=== PATIENT | male | born 1950 | race Caucasian/White ===

== ENCOUNTER 2018-10-27 21:42 | Inpatient (IN) | payer MEDICARE, MEDICAID ==
[~2018-10-27] VITALS: Ht 167.6 cm; Wt 61.6 kg
[~2018-10-27 21:42] MED LIST: ACET325T14 PO; LEVE100020; THIA100T67 PO; [UNRECOGNIZED DRUG - REMARK]
--- NOTE | 2018-10-27 21:51 | NUR ---
PT BIB [facility] FOR ETOH INTOXICATION AND ABD PAIN. VSS. PT AMBULATES WITH AN UNSTEADY GAIT. PT HAS HX OF ETOH ABUSE AND CIRRHOSIS. PT IN NAD. CALL LIGHT IN REACH
[2018-10-27 22:05] LABS: BASOPHILS # (AUTO) 0.02 x10^3/uL (0-0.1); BASOPHILS % (AUTO) 0 % (0-1); EOSINOPHILS # (AUTO) 0.23 x10^3/uL (0-0.4); EOSINOPHILS % (AUTO) 3 % (1-7); LYMPHOCYTES # (AUTO) 1.38 x10^3/uL (1-3.4); LYMPHOCYTES % (AUTO) 20 % (22-44); MD NO; MEAN CORPUSCULAR HEMOGLOBIN 36.2 pg (27.5-34.5); MEAN CORPUSCULAR VOLUME 106.7 fL (81-97); MEAN PLATELET VOLUME 8.1 fL (7.4-10.4); MONOCYTES # (AUTO) 0.85 x10^3/uL (0.2-0.8); MONOCYTES % (AUTO) 12 % (2-9); NEUTROPHILS # (AUTO) 4.58 x10^3/uL (1.8-6.8); NEUTROPHILS % (AUTO) 65 % (42-75); PLATELET COUNT 228 x10^3/uL (130-400); RED BLOOD COUNT 3.16 x10^6/uL (4.38-5.82); RED CELL DISTRIBUTION WIDTH 16.6 % (9.4-14.8)
[2018-10-27 22:17] LABS: ALANINE AMINOTRANSFERASE 56 U/L (12-78); ALBUMIN 3.5 g/dL (3.4-5.0); ANION GAP 18 mmol/L (5-15); CALCIUM 8.9 mg/dL (8.5-10.1); CHLORIDE 85 mmol/L (98-107); CREATININE 0.74 mg/dL (0.7-1.3)
[2018-10-27 22:19] LABS: ALKALINE PHOSPHATASE 111 U/L (45-117); BILIRUBIN,TOTAL 1.2 mg/dL (0.2-1.0); TOTAL PROTEIN 8.1 g/dL (6.4-8.2)
--- NOTE | 2018-10-27 23:03 | NUR ---
PT RESTING IN NAD. VSS. MD AT BEDSIDE
[2018-10-27] MEDS ORDERED: SODIUM CHLORIDE 0.9% 1,000 ML IV ONE (23:42)
--- NOTE | 2018-10-27 23:58 | NUR ---
PIV PLACED AND FLUIDS RUNNING. ADMITTING MD AT BEDSIDE
[2018-10-28] MEDS ORDERED: POLYETHYLENE GLYCOL 17 GM PACKET PO PRN
[2018-10-28] MEDS ORDERED: ONDANSETRON ODT 4 MG PO PRN
[2018-10-28] MEDS ORDERED: BISACODYL 10 MG SUPP PR PRN
[2018-10-28] MEDS ORDERED: POTASSIUM CHLORIDE 20 MEQ TAB.ER.PRT PO ONE (00:30)
[2018-10-28 01:07] VITALS: BP 108/62
[2018-10-28 01:32] LABS: MEAN CORPUSCULAR HEMOGLOBIN 35.6 pg (27.5-34.5); MEAN CORPUSCULAR HGB CONC 33.1 g/dL (33.2-36.2); MEAN CORPUSCULAR VOLUME 107.5 fL (81-97); MEAN PLATELET VOLUME 9.2 fL (7.4-10.4); PLATELET COUNT 201 x10^3/uL (130-400); RED BLOOD COUNT 3.33 x10^6/uL (4.38-5.82)
[2018-10-28 01:44] LABS: BASOPHILS # (AUTO) 0.18 x10^3/uL (0-0.1); BASOPHILS % (AUTO) 2 % (0-1); EOSINOPHILS # (AUTO) 0.24 x10^3/uL (0-0.4); EOSINOPHILS % (AUTO) 3 % (1-7); LYMPHOCYTES % (AUTO) 18 % (22-44); MD SCAN; MONOCYTES # (AUTO) 1.35 x10^3/uL (0.2-0.8); MONOCYTES % (AUTO) 14 % (2-9); NEUTROPHILS # (AUTO) 6.13 x10^3/uL (1.8-6.8); NEUTROPHILS % (AUTO) 64 % (42-75)
[2018-10-28] MEDS: SODIUM CHLORIDE 0.9% 1,000 ML IV SCH ×2 (02:04→15:29)
[2018-10-28] MEDS ORDERED: FLU VAC QS18-19(4YR UP)CEL/PF 0.5ML IM-VACC ONE ×2 (03:30→05:00)
[2018-10-28 07:11] LABS: ANION GAP 9 mmol/L (5-15); CHLORIDE 93 mmol/L (98-107)
[2018-10-28 07:15] LABS: ALANINE AMINOTRANSFERASE 46 U/L (12-78); ALKALINE PHOSPHATASE 108 U/L (45-117); CREATININE 0.57 mg/dL (0.7-1.3)
[2018-10-28 07:37] VITALS: BP 109/65
[2018-10-28] MEDS: SENNA/DOCUSATE TABLET PO SCH (09:00)
[2018-10-28] MEDS ORDERED: CHLORDIAZEPOXIDE 10 MG CAPSULE PO PRN (13:00)
[2018-10-28 14:45] VITALS: BP 102/51
[2018-10-28 20:48] VITALS: BP 117/54
[2018-10-29 02:48] VITALS: BP 100/58
[2018-10-29] MEDS: SODIUM CHLORIDE 0.9% 1,000 ML IV SCH (03:45)
[2018-10-29 05:44] LABS: ANION GAP 6 mmol/L (5-15); CALCIUM 8.2 mg/dL (8.5-10.1); CHLORIDE 101 mmol/L (98-107); CREATININE 0.58 mg/dL (0.7-1.3)
[2018-10-29 05:46] LABS: HEMOGRAM NOTE RECHECKED; MEAN CORPUSCULAR HEMOGLOBIN 35.6 pg (27.5-34.5); MEAN CORPUSCULAR HGB CONC 33.2 g/dL (33.2-36.2); MEAN CORPUSCULAR VOLUME 107.1 fL (81-97); MEAN PLATELET VOLUME 8.8 fL (7.4-10.4); PLATELET COUNT 152 x10^3/uL (130-400); RED CELL DISTRIBUTION WIDTH 17.2 % (9.4-14.8)
[2018-10-29 06:31] LABS: BASOPHILS # (AUTO) 0.01 x10^3/uL (0-0.1); BASOPHILS % (AUTO) 0 % (0-1); EOSINOPHILS # (AUTO) 0.33 x10^3/uL (0-0.4); EOSINOPHILS % (AUTO) 5 % (1-7); LYMPHOCYTES # (AUTO) 1.08 x10^3/uL (1-3.4); LYMPHOCYTES % (AUTO) 16 % (22-44); MD SCAN; MONOCYTES # (AUTO) 1.12 x10^3/uL (0.2-0.8); MONOCYTES % (AUTO) 17 % (2-9); NEUTROPHILS # (AUTO) 4.04 x10^3/uL (1.8-6.8); NEUTROPHILS % (AUTO) 61 % (42-75)
[2018-10-29 07:16] VITALS: BP 102/62
[2018-10-29] MEDS: FOLIC ACID 1 MG TABLET PO SCH (07:50)
[2018-10-29] MEDS: MULTIVITAMIN 1 TABLET PO SCH (07:50)
[2018-10-29] MEDS: SENNA/DOCUSATE TABLET PO SCH (07:50)
[2018-10-29] MEDS: THIAMINE 100MG TABLET PO SCH (07:53)
[2018-10-29 12:54] VITALS: BP 129/65
[2018-10-29 20:57] VITALS: BP 121/75
[2018-10-30 02:20] VITALS: BP 118/68
[2018-10-30 06:09] LABS: BASOPHILS # (AUTO) 0.02 x10^3/uL (0-0.1); BASOPHILS % (AUTO) 0 % (0-1); EOSINOPHILS % (AUTO) 7 % (1-7); LYMPHOCYTES # (AUTO) 1.28 x10^3/uL (1-3.4); LYMPHOCYTES % (AUTO) 22 % (22-44); MD NO; MEAN CORPUSCULAR HEMOGLOBIN 36.2 pg (27.5-34.5); MEAN CORPUSCULAR HGB CONC 33.8 g/dL (33.2-36.2); MEAN CORPUSCULAR VOLUME 107.2 fL (81-97); MEAN PLATELET VOLUME 8.7 fL (7.4-10.4); MONOCYTES # (AUTO) 0.74 x10^3/uL (0.2-0.8); MONOCYTES % (AUTO) 13 % (2-9); NEUTROPHILS # (AUTO) 3.49 x10^3/uL (1.8-6.8); NEUTROPHILS % (AUTO) 59 % (42-75); PLATELET COUNT 155 x10^3/uL (130-400); RED BLOOD COUNT 2.89 x10^6/uL (4.38-5.82)
[2018-10-30 06:32] LABS: CHLORIDE 100 mmol/L (98-107)
[2018-10-30 06:36] LABS: ANION GAP 8 mmol/L (5-15); CALCIUM 8.6 mg/dL (8.5-10.1); CREATININE 0.46 mg/dL (0.7-1.3)
[2018-10-30 07:45] VITALS: BP 109/67
[2018-10-30] MEDS: MULTIVITAMIN 1 TABLET PO SCH (08:02)
[2018-10-30] MEDS: FOLIC ACID 1 MG TABLET PO SCH (08:02)
[2018-10-30] MEDS: SENNA/DOCUSATE TABLET PO SCH (08:03)
[2018-10-30] MEDS: THIAMINE 100MG TABLET PO SCH (08:03)
[2018-10-30 13:27] VITALS: BP 119/64
[2018-10-30] MEDS ORDERED: FOLI-17 PO (17:22)
[2018-10-30] MEDS ORDERED: THIA100T67 PO (17:22)
[2018-10-30] MEDS ORDERED: MULT1TAB60 PO (17:22)
[2018-10-30] MEDS ORDERED: MAGN400T26 PO (17:22)
[2018-10-30 19:44] VITALS: BP 131/76
[2018-10-31 02:29] VITALS: BP 126/66
[2018-10-31 07:23] VITALS: BP 134/68
[2018-10-31] MEDS: MULTIVITAMIN 1 TABLET PO SCH (07:53)
[2018-10-31] MEDS: FOLIC ACID 1 MG TABLET PO SCH (07:53)
[2018-10-31] MEDS: SENNA/DOCUSATE TABLET PO SCH (07:54)
[2018-10-31] MEDS: THIAMINE 100MG TABLET PO SCH (07:58)
== END 2018-10-31 11:50 | disposition home or self-care (01) | DRG 641 ==
LOC: ED 23:43 → 4NOR 23:57 → DCLOUNGE 10-31 11:32
PROVIDERS: ADMIT Internal Medicine; ATTEND Internal Medicine
DX: E87.1 Hypo-osmolality and hyponatremia (principal); F10.220 Alcohol dependence with intoxication, uncomplicated; K70.30 Alcoholic cirrhosis of liver without ascites; R00.0 Tachycardia, unspecified; E87.5 Hyperkalemia; E86.0 Dehydration; E87.6 Hypokalemia; F17.210 Nicotine dependence, cigarettes, uncomplicated; D64.9 Anemia, unspecified; Z59.0 Homelessness; Z23 Encounter for immunization
CPT/HCPCS: 36415; 80048; 80053; 80307; 83690; 83930; 84295; 85025; 90656; 93005; 99285; G0378; J7030

== ENCOUNTER 2018-11-07 12:44 | Emergency (ER) | payer MEDICARE, MEDICAID ==
[~2018-11-07] VITALS: Ht 162.6 cm; Wt 70.0 kg
[~2018-11-07 12:44] MED LIST changes: +FOLI-17 PO; +MAGN400T26 PO; +MULT1TAB60 PO
[2018-11-07 13:26] VITALS: BP 106/68
== END 2018-11-07 13:53 | disposition home or self-care (01) ==
LOC: ED 13:47
DX: F10.220 Alcohol dependence with intoxication, uncomplicated (principal)
CPT/HCPCS: 99283

== ENCOUNTER 2018-11-24 16:53 | Emergency (ER) | payer MEDICARE, MEDICAID ==
[~2018-11-24] VITALS: Ht 165.1 cm; Wt 80.0 kg
[2018-11-24 17:01] VITALS: BP 129/77
== END 2018-11-24 17:32 | disposition home or self-care (01) ==
LOC: ED 17:25
DX: I87.2 Venous insufficiency (chronic) (peripheral) (principal); E88.09 Other disorders of plasma-protein metabolism, not elsewhere classified; F17.200 Nicotine dependence, unspecified, uncomplicated
CPT/HCPCS: 99283

== ENCOUNTER 2018-11-25 00:31 | Emergency (ER) | payer MEDICARE, MEDICAID ==
[~2018-11-25] VITALS: Ht 167.6 cm; Wt 75.0 kg
--- NOTE | 2018-11-25 00:43 | NUR ---
PT BIB EMS AFTER PT WAS FOUND ON THE SIDE OF THE STREET. PT SMELLS OF ETOH. NO ACUTE DISTRESS NOTED. VS STABLE. PT SEEN BY DR HICKMAN. CALL LIGHT IN PLACE. WILL CONTINUE TO MONITOR.
--- NOTE | 2018-11-25 01:22 | NUR ---
PT RESTING ON GURNEY, NADN, RESPIRATIONS EVEN AND UNLABORED, SIDERAILS UP X2, CALL LIGHT WITHIN REACH
--- NOTE | 2018-11-25 03:27 | NUR ---
PT RESTING WITH EYES CLOSED, REPOSITIONED SELF ON GURNEY, EQUAL CHEST RISE/ FALL OBSERVED, CALL LIGHT WITHIN REACH.
[2018-11-25 04:18] VITALS: BP 109/46
[2018-11-25] MEDS ORDERED: BACITRACIN ZINC OINT 500U/GM, 0.9 GM ONE (04:23)
--- NOTE | 2018-11-25 04:37 | NUR ---
PT AWAKE AND ALERT ANSWERS QUESTIONS APPROPRIATELY, ABLE TO AMBULATE WITHOUT DIFFICULTY
== END 2018-11-25 04:40 | disposition home or self-care (01) ==
LOC: ED 01:10
DX: F10.120 Alcohol abuse with intoxication, uncomplicated (principal); Z72.9 Problem related to lifestyle, unspecified; F17.200 Nicotine dependence, unspecified, uncomplicated
CPT/HCPCS: 36415; 80307; 99283

== ENCOUNTER 2018-12-08 10:38 | Emergency (ER) | payer MEDICARE, MEDICAID ==
[~2018-12-08] VITALS: Ht 167.6 cm; Wt 67.8 kg
[2018-12-08 10:41] VITALS: BP 116/71
--- NOTE | 2018-12-08 11:13 | NUR ---
PT TO ED FOR "LEG PAIN AND CAN'T WALK." PT AMB WIHTOUT ASSISTANCE WITH STEADY GAIT. PT RELUCTANT TO ANSWER QUESTIONS AND STATES "I'M CRIPPLED AND I DON'T FEEL GOOD." PT REFUSES TO ELABORATE OR STATE IF HE IS IN PAIN OR STATE ANY MEDICAL HISTORY. PT STATES HE DRANK TEN BEERS TODAY. CONNECTED TO PULSE OX. VSS. CALL LIGHT WITHIN REACH. NO NEEDS AT THIS TIME. AWAITIN GMD ASSESSMENT.
--- NOTE | 2018-12-08 12:00 | NUR ---
ORDERS RECEIVED. LAB AT BEDSIDE. NO NEEDS AT THIS TIME. CALL LIGHT WITHIN REACH.
[2018-12-08 12:11] LABS: BASOPHILS # (AUTO) 0.04 x10^3/uL (0-0.1); BASOPHILS % (AUTO) 1 % (0-1); EOSINOPHILS # (AUTO) 0.11 x10^3/uL (0-0.4); EOSINOPHILS % (AUTO) 2 % (1-7); LYMPHOCYTES # (AUTO) 1.36 x10^3/uL (1-3.4); LYMPHOCYTES % (AUTO) 20 % (22-44); MD NO; MEAN CORPUSCULAR HEMOGLOBIN 34.5 pg (27.5-34.5); MEAN CORPUSCULAR HGB CONC 33.1 g/dL (33.2-36.2); MEAN CORPUSCULAR VOLUME 104.1 fL (81-97); MEAN PLATELET VOLUME 7.3 fL (7.4-10.4); MONOCYTES # (AUTO) 0.82 x10^3/uL (0.2-0.8); MONOCYTES % (AUTO) 12 % (2-9); NEUTROPHILS # (AUTO) 4.43 x10^3/uL (1.8-6.8); NEUTROPHILS % (AUTO) 66 % (42-75); PLATELET COUNT 292 x10^3/uL (130-400); RED BLOOD COUNT 3.24 x10^6/uL (4.38-5.82); RED CELL DISTRIBUTION WIDTH 18.5 % (9.4-14.8)
[2018-12-08 12:23] LABS: ANION GAP 11 mmol/L (5-15); CALCIUM 8.9 mg/dL (8.5-10.1); CHLORIDE 96 mmol/L (98-107); CREATININE 0.49 mg/dL (0.7-1.3)
--- NOTE | 2018-12-08 12:35 | NUR ---
ALL RESULTS BACK AT THIS TIME. CHART UP FOR RECHECK. PT RESTING IN ROOM WITH EYES CLOSED. CALL LIGHT WITHIN REACH. NO NEEDS AT THIS TIME.
== END 2018-12-08 12:47 | disposition home or self-care (01) ==
LOC: ED 12:30
DX: E87.1 Hypo-osmolality and hyponatremia (principal); F10.220 Alcohol dependence with intoxication, uncomplicated; F17.200 Nicotine dependence, unspecified, uncomplicated; Z72.9 Problem related to lifestyle, unspecified
CPT/HCPCS: 36415; 80048; 82040; 85025; 99283

== ENCOUNTER 2018-12-14 14:07 | Emergency (ER) | payer MEDICAID, MEDICARE ==
[~2018-12-14] VITALS: Ht 170.2 cm; Wt 68.0 kg
--- NOTE | 2018-12-14 14:27 | NUR ---
Pt BIB [facility] wanting to Detox. Pt was found in the basement of the library. Stated that he wants to go to [place]. Denies HX and Medications. Refused FS. BP 144/81, HR 89, O2 Sat 94%. Pt is A&OX4. Pt stated that he is sick and cant walk. Pt is connected to the monitor. Call light within reach. MD at bedside.
--- NOTE | 2018-12-14 14:46 | NUR ---
ENERGY CONSERVATION REPRESENTATIVE AT BEDSIDE.
--- NOTE | 2018-12-14 15:21 | NUR ---
Pt is resting in bed, with eyes closed, respirations equal and non labored. NAD. Pt is connected to the monitor. Side rails up. Call light within reach.
[2018-12-14 18:43] VITALS: BP 115/58
--- NOTE | 2018-12-14 19:16 | NUR ---
Pt remains sleeping in room, bilateral chest rise noted, remains on cont cardiac and pulse ox monitoring.
== END 2018-12-14 20:46 | disposition home or self-care (01) ==
LOC: ED 15:29
DX: F10.220 Alcohol dependence with intoxication, uncomplicated (principal)
CPT/HCPCS: 99283

== ENCOUNTER 2018-12-19 20:49 | Emergency (ER) | payer MEDICARE, MEDICAID ==
[~2018-12-19] VITALS: Ht 167.6 cm; Wt 65.0 kg
[2018-12-19 20:52] VITALS: BP 107/63
--- NOTE | 2018-12-19 21:00 | NUR ---
BIB [facility] FROM [facility] FOR BILATERAL LEG PAIN X SEVERAL YEARS. PT ABLE TO AMBULATE FROM EMS STRECHER TO ER STRETCHER. PER REPORT PT HAS BEEN DRINKING ALCOHOL.
--- NOTE | 2018-12-19 22:37 | NUR ---
PT SLEEPING. RESPIRATIONS EVEN AND UNLABORED. WILL CONTINUE TO MONITOR.
--- NOTE | 2018-12-19 23:48 | NUR ---
PT AMBULATORY WITHOUT ASSISTANCE. DISCHARGED
--- NOTE | 2018-12-19 23:49 | NUR ---
Patient/Caregiver given discharge instructions and they have confirmed that they understand the instructions. Patient ambulatory with steady gait.
== END 2018-12-19 23:51 | disposition home or self-care (01) ==
LOC: ED 21:30
DX: F10.220 Alcohol dependence with intoxication, uncomplicated (principal); F12.20 Cannabis dependence, uncomplicated; Z72.9 Problem related to lifestyle, unspecified
CPT/HCPCS: 99283

== ENCOUNTER 2018-12-21 18:43 | Emergency (ER) | payer MEDICARE, MEDICAID ==
[~2018-12-21] VITALS: Ht 167.6 cm; Wt 72.0 kg
--- NOTE | 2018-12-21 19:10 | NUR ---
bib [facility] for etoh, [place], a&ox4, gcs 15, b/p-144/88, hr-90, 96% r/a, pt ambulated to room. monitors applied, siderails up x2, call light within reach. awaiting erp for eval and orders
--- NOTE | 2018-12-21 19:12 | NUR ---
Pt came in covered in urine and BM. Pt was undressed, cleaned, and placed in gown. pt has open wound on both butt cheeks. Pt given warm blankets.
--- NOTE | 2018-12-21 19:13 | NUR ---
Report given to Jennifer LUCAS.
--- NOTE | 2018-12-21 19:47 | NUR ---
pt resting calmly, monitors in place, call light within reach. technical sales associate at bedside
[2018-12-21 19:51] LABS: BASOPHILS # (AUTO) 0.04 x10^3/uL (0-0.1); BASOPHILS % (AUTO) 0 % (0-1); EOSINOPHILS # (AUTO) 1.26 x10^3/uL (0-0.4); EOSINOPHILS % (AUTO) 12 % (1-7); LYMPHOCYTES # (AUTO) 1.88 x10^3/uL (1-3.4); LYMPHOCYTES % (AUTO) 18 % (22-44); MD NO; MEAN CORPUSCULAR HEMOGLOBIN 34.9 pg (27.5-34.5); MEAN CORPUSCULAR HGB CONC 33.6 g/dL (33.2-36.2); MEAN PLATELET VOLUME 7.9 fL (7.4-10.4); MONOCYTES # (AUTO) 1.31 x10^3/uL (0.2-0.8); MONOCYTES % (AUTO) 12 % (2-9); NEUTROPHILS # (AUTO) 6.16 x10^3/uL (1.8-6.8); NEUTROPHILS % (AUTO) 58 % (42-75); PLATELET COUNT 168 x10^3/uL (130-400); RED BLOOD COUNT 3.06 x10^6/uL (4.38-5.82); RED CELL DISTRIBUTION WIDTH 18.5 % (9.4-14.8)
[2018-12-21 20:01] LABS: ALANINE AMINOTRANSFERASE 42 U/L (12-78); ALBUMIN 2.6 g/dL (3.4-5.0); ANION GAP 8 mmol/L (5-15); CALCIUM 7.5 mg/dL (8.5-10.1); CHLORIDE 105 mmol/L (98-107); CREATININE 0.47 mg/dL (0.7-1.3)
[2018-12-21 20:05] LABS: ALKALINE PHOSPHATASE 160 U/L (45-117); BILIRUBIN,TOTAL 0.6 mg/dL (0.2-1.0); TOTAL PROTEIN 6.8 g/dL (6.4-8.2); TROPONIN I 0.017 ng/mL (0.000-0.045)
[2018-12-21 20:29] LABS: INTERNATIONAL NORMALIZED RATIO 1.08 (0.93-1.1); PROTHROMBIN TIME 11.4 Seconds (9.6-11.5)
--- NOTE | 2018-12-21 20:39 | NUR ---
PT RESTING WITH EYES CLOSED, NADN, EQUAL CHEST RISE/FALL OBSERVED, SIDERAILS UP X2, CALL LIGHT WITHIN REACH. AWAITING LAB RESULTS
--- NOTE | 2018-12-21 21:08 | NUR ---
PT ASSISTED TO SHOWER PER BILINGUAL TEACHER
--- NOTE | 2018-12-21 21:38 | NUR ---
PROVIDED PT WITH SANDWICH AND DRINK, PT DENIES FURTHER NEEDS
[2018-12-21] MEDS ORDERED: BACITRACIN ZINC OINT 500U/GM, 0.9 GM ONE (21:42)
[2018-12-21 22:04] VITALS: BP 120/78
== END 2018-12-21 22:13 | disposition home or self-care (01) ==
LOC: ED 20:23
DX: I87.2 Venous insufficiency (chronic) (peripheral) (principal); R60.0 Localized edema; E88.09 Other disorders of plasma-protein metabolism, not elsewhere classified; L97.521 Non-pressure chronic ulcer of other part of left foot limited to breakdown of skin; L89.159 Pressure ulcer of sacral region, unspecified stage; I87.8 Other specified disorders of veins; F10.10 Alcohol abuse, uncomplicated; Z59.0 Homelessness; Z72.9 Problem related to lifestyle, unspecified; Y90.9 Presence of alcohol in blood, level not specified
CPT/HCPCS: 36415; 71045; 80053; 83880; 84484; 85025; 85610; 85730; 93005; 99284

== ENCOUNTER 2018-12-23 20:54 | Emergency (ER) | payer MEDICARE, MEDICAID ==
[~2018-12-23] VITALS: Ht 167.6 cm; Wt 70.0 kg
--- NOTE | 2018-12-23 21:13 | NUR ---
THI. REPORT RECEIVED FROM EMS. PT HAS ETOH AND GLF AT [facility] TODAY. DENIES HITTING ON HEAD/LOC/TRAUMA. pt is unable to answer some questions d/t etoh. bp/spo2 monitors in place. call light within reach.
[2018-12-23 21:43] LABS: MEAN CORPUSCULAR HEMOGLOBIN 34.6 pg (27.5-34.5); MEAN CORPUSCULAR HGB CONC 32.8 g/dL (33.2-36.2); MEAN CORPUSCULAR VOLUME 105.3 fL (81-97); MEAN PLATELET VOLUME 8.7 fL (7.4-10.4); PLATELET COUNT 159 x10^3/uL (130-400); RED BLOOD COUNT 2.88 x10^6/uL (4.38-5.82); RED CELL DISTRIBUTION WIDTH 19.2 % (9.4-14.8)
--- NOTE | 2018-12-23 21:49 | NUR ---
NS 1L RUNNING FREELY AT THIS TIME. BP IS 80/33 NOW AND PA NOTIFIED.
[2018-12-23 21:56] LABS: ALANINE AMINOTRANSFERASE 35 U/L (12-78); ALBUMIN 2.3 g/dL (3.4-5.0); ANION GAP 10 mmol/L (5-15); CALCIUM 7.6 mg/dL (8.5-10.1); CHLORIDE 108 mmol/L (98-107); CREATININE 0.96 mg/dL (0.7-1.3)
[2018-12-23] MEDS ORDERED: SODIUM CHLORIDE 0.9% 1,000ML IVBOLUS ONE (22:00)
[2018-12-23 22:01] LABS: ALKALINE PHOSPHATASE 164 U/L (45-117); BILIRUBIN,TOTAL 0.4 mg/dL (0.2-1.0); TOTAL PROTEIN 6.2 g/dL (6.4-8.2)
[2018-12-23 22:05] LABS: MD YES
[2018-12-23 22:07] LABS: EOS#(MANUAL) 1.87 x10^3/uL (0.0-0.4); EOS% (MANUAL) 16 % (1-7); LYMPH#(MANUAL) 2.93 x10^3/uL (1-3.4); LYMPHS% (MANUAL) 25 % (22-44); MONOS#(MANUAL) 1.52 x10^3/uL (0.3-2.7); MONOS% (MANUAL) 13 % (2-9); SEG#(MANUAL) 5.38 x10^3/uL (1.8-6.8); SEGS% (MANUAL) 46 % (42-75)
[2018-12-23 22:08] LABS: ANISOCYTOSIS 1+
[2018-12-23 22:09] LABS: OVALOCYTES 1+
[2018-12-23 22:10] LABS: SCHISTOCYTES 1+
[2018-12-23 22:11] LABS: PMNS WITH VACUOLES 1+
[2018-12-23 22:12] LABS: <PLATELET ESTIMATE> ADEQUATE; <PLT MORPHOLOGY> NORMAL PLT MORPH
--- NOTE | 2018-12-23 22:16 | NUR ---
pt sleeping in [facility]. bp/spo2 monitors in place. call light within reach.
--- NOTE | 2018-12-23 23:55 | NUR ---
PT SLEEPING IN [facility]. BP/SPO2 MONITORS IN PLACE. CALL LIGHT WITHIN REACH.
[2018-12-24 00:50] VITALS: BP 90/34
--- NOTE | 2018-12-24 00:56 | NUR ---
PT GIVEN TO DC INSTRUCTIONS. PT AMB TO DC SITH STEADY GAIT. TAXI VOUCHER PROVIDED AT ND. NO ACUTE DISTRESS AT ND.
== END 2018-12-24 00:53 | disposition home or self-care (01) ==
LOC: ED 21:22
DX: F10.120 Alcohol abuse with intoxication, uncomplicated (principal); Z72.9 Problem related to lifestyle, unspecified; I95.9 Hypotension, unspecified
CPT/HCPCS: 36415; 80053; 80307; 85025; 96360; 99283; J7030

== ENCOUNTER 2018-12-27 11:31 | Emergency (ER) | payer MEDICARE, MEDICAID ==
[~2018-12-27] VITALS: Ht 152.4 cm; Wt 65.9 kg
--- NOTE | 2018-12-27 11:31 | NUR ---
PT ARRIVES VIA EMS AFTER BEING FOUND INTOXICATED OUTSIDE LIBRARY. PT UNABLE TO AMBULATE. DENIES MEDICAL COMPLAINTS. AWAITING ROOM AT THIS TIME.
[2018-12-27 12:18] VITALS: BP 112/76
--- NOTE | 2018-12-27 13:42 | NUR ---
PT SLEEPING IN [facility], AWAITING ROOM ASSIGNMENT.
--- NOTE | 2018-12-27 14:45 | NUR ---
Upon vaccine customer representative pt up at bedside getting dressed, pt ambulated without assistance, denies any medical complaint, pt given taxi voucher to [facility] per request for safe discharge.
== END 2018-12-27 14:47 | disposition home or self-care (01) ==
LOC: ED 14:41
DX: F10.221 Alcohol dependence with intoxication delirium (principal); Z72.9 Problem related to lifestyle, unspecified; I10 Essential (primary) hypertension
CPT/HCPCS: 99283

== ENCOUNTER 2019-01-01 17:41 | Inpatient (IN) | payer MEDICARE, MEDICAID ==
[~2019-01-01] VITALS: Ht 167.6 cm; Wt 67.9 kg
--- NOTE | 2019-01-01 18:31 | NUR ---
MD TO BEDSIDE FOR ASSESSMENT. ORDERS RECEIVED. LAB AND RAD AT BEDSIDE. CALL LIGHT WITHIN REACH. AWAITING RESULTS AT THIS TIME
[2019-01-01 18:51] LABS: MEAN CORPUSCULAR HEMOGLOBIN 34.6 pg (27.5-34.5); MEAN CORPUSCULAR HGB CONC 33.2 g/dL (33.2-36.2); MEAN CORPUSCULAR VOLUME 104.1 fL (81-97); MEAN PLATELET VOLUME 8.1 fL (7.4-10.4); PLATELET COUNT 178 x10^3/uL (130-400); RED BLOOD COUNT 3.19 x10^6/uL (4.38-5.82); RED CELL DISTRIBUTION WIDTH 19.2 % (9.4-14.8)
--- NOTE | 2019-01-01 18:59 | NUR ---
REPORT GIVEN TO QASIM LUCAS
[2019-01-01 19:03] LABS: ALANINE AMINOTRANSFERASE 49 U/L (12-78); ALBUMIN 2.5 g/dL (3.4-5.0); CREATININE 0.99 mg/dL (0.7-1.3)
[2019-01-01 19:05] LABS: ALKALINE PHOSPHATASE 263 U/L (45-117); ANION GAP 11 mmol/L (5-15); BILIRUBIN,TOTAL 0.6 mg/dL (0.2-1.0); CHLORIDE 107 mmol/L (98-107); TOTAL PROTEIN 7.1 g/dL (6.4-8.2)
[2019-01-01 19:10] LABS: BASOPHILS # (AUTO) 0.39 x10^3/uL (0-0.1); BASOPHILS % (AUTO) 4 % (0-1); EOSINOPHILS # (AUTO) 1.13 x10^3/uL (0-0.4); EOSINOPHILS % (AUTO) 11 % (1-7); LYMPHOCYTES # (AUTO) 1.73 x10^3/uL (1-3.4); LYMPHOCYTES % (AUTO) 17 % (22-44); MD SCAN; MONOCYTES # (AUTO) 1.68 x10^3/uL (0.2-0.8); MONOCYTES % (AUTO) 16 % (2-9); NEUTROPHILS # (AUTO) 5.31 x10^3/uL (1.8-6.8); NEUTROPHILS % (AUTO) 52 % (42-75)
[2019-01-01 19:25] LABS: INTERNATIONAL NORMALIZED RATIO 1.1 (0.93-1.1); PROTHROMBIN TIME 11.5 Seconds (9.6-11.5)
[2019-01-01] MEDS ORDERED: VANCOMYCIN PER PHARMACY IV ONE (19:30)
[2019-01-01] MEDS ORDERED: SODIUM CHLORIDE 0.9% 1,000ML IVBOLUS ONE (19:30)
[2019-01-01] MEDS ORDERED: CEFAZOLIN PMX 1GM/50ML 50 ML IV ONE (19:30)
[2019-01-01] MEDS ORDERED: CEFAZOLIN PMX 1GM/50ML 50 ML ONE (19:45)
--- NOTE | 2019-01-01 19:47 | NUR ---
PT IN IMAGING. THIS RN TO START IV AND HANG FLUIDS AND ABX PER MAR UPON RETURN.
[2019-01-01] MEDS ORDERED: VANCOMYCIN 1,500 MG in SODIUM CHLORIDE 0.9% 250 ML IV ONE (20:00)
[2019-01-01] MEDS ORDERED: hydrALAzine 20 MG/ML, 1ML IVPush PRN (21:00)
[2019-01-01] MEDS ORDERED: ONDANSETRON 2MG/ML, 2ML IVPush PRN (21:00)
[2019-01-01] MEDS ORDERED: LORazepam 2 MG/ML, 1ML IVPush PRN (21:00)
[2019-01-01] MEDS ORDERED: PERMETHRIN CRM 5%, 60GM TP ONE (21:00)
[2019-01-01] MEDS ORDERED: POLYETHYLENE GLYCOL 17 GM PACKET PO PRN (21:00)
--- NOTE | 2019-01-01 21:12 | NUR ---
NURSE UPSTAIRS IN ISO ROOM. STATES WILL CALL BACK AFTER.
[2019-01-02] MEDS: POTASSIUM CHLORIDE 20 MEQ, MAGNESIUM SULFATE 2 GM, THIAMINE 200 MG, MVI ADULT 10 ML, FO... IV SCH ×2 (01:25→22:23)
[2019-01-02] MEDS: ENOXAPARIN 40 MG/0.4 ML SQ SCH ×2 (01:26→22:27)
[2019-01-02] MEDS: POTASSIUM CHLORIDE 20 MEQ TAB.ER.PRT PO SCH ×3 (01:26→16:45)
[2019-01-02 02:00] VITALS: BP 151/86
[2019-01-02 05:32] LABS: MEAN CORPUSCULAR HEMOGLOBIN 34.9 pg (27.5-34.5); MEAN CORPUSCULAR HGB CONC 33.2 g/dL (33.2-36.2); MEAN CORPUSCULAR VOLUME 105.1 fL (81-97); MEAN PLATELET VOLUME 8.4 fL (7.4-10.4); PLATELET COUNT 118 x10^3/uL (130-400); RED CELL DISTRIBUTION WIDTH 19.4 % (9.4-14.8)
[2019-01-02 05:34] LABS: CHLORIDE 109 mmol/L (98-107)
[2019-01-02 05:51] LABS: ALANINE AMINOTRANSFERASE 37 U/L (12-78); ALKALINE PHOSPHATASE 178 U/L (45-117); ANION GAP 4 mmol/L (5-15); BILIRUBIN,TOTAL 1.1 mg/dL (0.2-1.0); CALCIUM 7.1 mg/dL (8.5-10.1); CREATININE 0.67 mg/dL (0.7-1.3); TOTAL PROTEIN 5.7 g/dL (6.4-8.2)
[2019-01-02 05:57] LABS: BASOPHILS # (AUTO) 0.05 x10^3/uL (0-0.1); BASOPHILS % (AUTO) 0 % (0-1); EOSINOPHILS # (AUTO) 1.38 x10^3/uL (0-0.4); EOSINOPHILS % (AUTO) 11 % (1-7); LYMPHOCYTES # (AUTO) 1.95 x10^3/uL (1-3.4); LYMPHOCYTES % (AUTO) 16 % (22-44); MD SCAN; MONOCYTES # (AUTO) 2.02 x10^3/uL (0.2-0.8); MONOCYTES % (AUTO) 16 % (2-9); NEUTROPHILS # (AUTO) 7.13 x10^3/uL (1.8-6.8); NEUTROPHILS % (AUTO) 57 % (42-75)
[2019-01-02] MEDS: D5%-0.9% NACL 1,000 ML IV SCH ×2 (06:19→16:00)
[2019-01-02] MEDS ORDERED: CEFTRIAXONE PMX 1GM/50ML 50 ML IV SCH (08:00)
[2019-01-02 08:04] VITALS: BP 120/69
[2019-01-02 08:13] LABS: HEMOGLOBIN A1C 4.7 % (4.2-6.3)
[2019-01-02 09:08] LABS: MICROSCOPIC INDICATED
[2019-01-02 09:10] LABS: CULTURE INDICATED? YES
[2019-01-02 14:15] VITALS: BP 128/94
[2019-01-02 16:39] VITALS: BP 157/95
[2019-01-02] MEDS ORDERED: VANCOMYCIN PER PHARMACY MC PRN (19:30)
[2019-01-02] MEDS ORDERED: LORazepam 2 MG/ML, 1ML IV PRN ×5 (20:00)
[2019-01-02] MEDS ORDERED: PHARMACOKINETIC MONITORING MC PRN (20:00)
[2019-01-02] MEDS ORDERED: morphine SULFATE 10 MG/ML, 1ML IVPush PRN (20:00)
[2019-01-02] MEDS ORDERED: LORazepam 2 MG/ML, 1ML IVPush ONE (20:00)
[2019-01-02] MEDS ORDERED: PHARMACOKINETIC CONSULTATION MC ONE (20:00)
[2019-01-02] MEDS ORDERED: methylPREDNISolone SOD SUCC 125 MG/2 ML IVPush ONE (20:00)
[2019-01-02] MEDS: methylPREDNISolone SOD SUCC 125 MG/2 ML IVPush SCH (20:30)
[2019-01-02] MEDS: VANCOMYCIN 1,200 MG in SODIUM CHLORIDE 0.9% 250 ML IV SCH (22:24)
[2019-01-02] MEDS: ALBUTEROL/IPRATROPIUM 2.5MG/0.5MG, 3 ML NPPB SCH (23:00)
[2019-01-03] MEDS: AMPICILLIN/SULBACTAM 3 GM in SODIUM CHLORIDE 0.9% 100 ML IV SCH ×3 (01:00→12:51)
[2019-01-03] MEDS: D5%-0.9% NACL 1,000 ML IV SCH ×3 (02:00→22:00)
[2019-01-03] MEDS: ALBUTEROL/IPRATROPIUM 2.5MG/0.5MG, 3 ML NPPB SCH ×4 (02:09→14:50)
[2019-01-03] MEDS: methylPREDNISolone SOD SUCC 125 MG/2 ML IVPush SCH ×2 (03:59→08:46)
[2019-01-03 05:01] LABS: ALBUMIN 2.1 g/dL (3.4-5.0); ANION GAP 4 mmol/L (5-15); BASOPHILS # (AUTO) 0.01 x10^3/uL (0-0.1); BASOPHILS % (AUTO) 0 % (0-1); CALCIUM 7.6 mg/dL (8.5-10.1); CHLORIDE 103 mmol/L (98-107); EOSINOPHILS # (AUTO) 0.01 x10^3/uL (0-0.4); EOSINOPHILS % (AUTO) 0 % (1-7); LYMPHOCYTES # (AUTO) 0.48 x10^3/uL (1-3.4); LYMPHOCYTES % (AUTO) 6 % (22-44); MD NO; MEAN CORPUSCULAR HEMOGLOBIN 34.6 pg (27.5-34.5); MEAN CORPUSCULAR HGB CONC 33.1 g/dL (33.2-36.2); MEAN CORPUSCULAR VOLUME 104.7 fL (81-97); MEAN PLATELET VOLUME 8.6 fL (7.4-10.4); MONOCYTES # (AUTO) 0.07 x10^3/uL (0.2-0.8); MONOCYTES % (AUTO) 1 % (2-9); NEUTROPHILS # (AUTO) 7.14 x10^3/uL (1.8-6.8); NEUTROPHILS % (AUTO) 93 % (42-75); PLATELET COUNT 127 x10^3/uL (130-400); RED BLOOD COUNT 3.03 x10^6/uL (4.38-5.82); RED CELL DISTRIBUTION WIDTH 18.8 % (9.4-14.8)
[2019-01-03 05:04] LABS: ALANINE AMINOTRANSFERASE 37 U/L (12-78); ALKALINE PHOSPHATASE 190 U/L (45-117); BILIRUBIN,TOTAL 1.2 mg/dL (0.2-1.0); TOTAL PROTEIN 6.6 g/dL (6.4-8.2)
[2019-01-03 05:05] LABS: HEMOGLOBIN A1C 4.7 % (4.2-6.3)
[2019-01-03] MEDS ORDERED: LORazepam 2 MG/ML, 1ML IVPush PRN (08:30)
[2019-01-03] MEDS: CHLORDIAZEPOXIDE 25 MG CAPSULE PO SCH ×3 (08:49→21:07)
[2019-01-03] MEDS ORDERED: GADOBUTROL 7.5 MMOL/7.5 ML PFS ONE (10:13)
[2019-01-03 13:12] VITALS: BP 113/55
[2019-01-03] MEDS: CEFTRIAXONE PMX 1GM/50ML 50 ML IV SCH (15:27)
[2019-01-03] MEDS ORDERED: ALBUTEROL/IPRATROPIUM 2.5MG/0.5MG, 3 ML NPPB PRN (16:00)
[2019-01-03] MEDS: VANCOMYCIN 1,200 MG in SODIUM CHLORIDE 0.9% 250 ML IV SCH (19:42)
[2019-01-03 21:04] VITALS: BP 120/68
[2019-01-03] MEDS: ENOXAPARIN 40 MG/0.4 ML SQ SCH (21:08)
[2019-01-03] MEDS: POTASSIUM CHLORIDE 20 MEQ, MAGNESIUM SULFATE 2 GM, THIAMINE 200 MG, MVI ADULT 10 ML, FO... IV SCH (23:17)
[2019-01-04 02:05] VITALS: BP 121/71
[2019-01-04 08:00] VITALS: BP 116/65
[2019-01-04] MEDS: CHLORDIAZEPOXIDE 25 MG CAPSULE PO SCH ×3 (08:22→20:48)
[2019-01-04] MEDS: D5%-0.9% NACL 1,000 ML IV SCH ×2 (08:23→20:00)
[2019-01-04 14:00] VITALS: BP 124/70
[2019-01-04] MEDS: CEFTRIAXONE PMX 1GM/50ML 50 ML IV SCH (15:21)
[2019-01-04] MEDS: ENOXAPARIN 40 MG/0.4 ML SQ SCH (20:48)
[2019-01-04] MEDS: VANCOMYCIN 1,200 MG in SODIUM CHLORIDE 0.9% 250 ML IV SCH (20:48)
[2019-01-04 20:51] VITALS: BP 120/68
[2019-01-04] MEDS: POTASSIUM CHLORIDE 20 MEQ, MAGNESIUM SULFATE 2 GM, THIAMINE 200 MG, MVI ADULT 10 ML, FO... IV SCH (23:23)
[2019-01-05 02:57] VITALS: BP 127/78
[2019-01-05] MEDS: D5%-0.9% NACL 1,000 ML IV SCH ×2 (03:52→13:45)
[2019-01-05 08:11] VITALS: BP 121/67
[2019-01-05 10:56] LABS: HCT (SEDRATE) 30.9 % (39.2-51.8)
[2019-01-05] MEDS ORDERED: FUROSEMIDE 40 MG/4 ML IV ONE (11:30)
[2019-01-05] MEDS: CHLORDIAZEPOXIDE 25 MG CAPSULE PO SCH ×3 (11:49→21:00)
[2019-01-05 13:04] VITALS: BP 130/73
[2019-01-05] MEDS: CEFTRIAXONE PMX 1GM/50ML 50 ML IV SCH (15:30)
[2019-01-05] MEDS ORDERED: BUPIVACAINE/PF 0.5% ONE (15:49)
[2019-01-05] MEDS ORDERED: MIDAZOLAM 1 MG/ML, 2ML ONE (16:40)
[2019-01-05] MEDS ORDERED: FENTANYL PF 100 MCG/2ML ONE (16:40)
[2019-01-05] MEDS ORDERED: PROPOFOL 10 MG/ML, 20ML ONE (16:45)
[2019-01-05] MEDS ORDERED: PHENYLEPHRINE 10 MG/ML ONE (16:45)
[2019-01-05] MEDS ORDERED: SUCCINYLCHOLINE 20 MG/ML, 10ML ONE (16:45)
[2019-01-05] MEDS ORDERED: BUPIVACAINE/PF 0.5% INFIL ONE (17:04)
[2019-01-05 18:30] VITALS: BP 118/69
[2019-01-05] MEDS: VANCOMYCIN 1,200 MG in SODIUM CHLORIDE 0.9% 250 ML IV SCH (20:59)
[2019-01-05] MEDS: ENOXAPARIN 40 MG/0.4 ML SQ SCH (21:00)
[2019-01-05] MEDS ORDERED: VANCOMYCIN 1,200 MG in SODIUM CHLORIDE 0.9% 250 ML IV SCH (22:30)
[2019-01-05] MEDS ORDERED: VANCOMYCIN PMX 1GM/200ML 200 ML IV ONE (23:00)
[2019-01-06 00:12] VITALS: BP 124/69
[2019-01-06] MEDS: POTASSIUM CHLORIDE 20 MEQ, MAGNESIUM SULFATE 2 GM, THIAMINE 200 MG, MVI ADULT 10 ML, FO... IV SCH (00:27)
[2019-01-06 04:12] VITALS: BP 118/65
[2019-01-06 05:11] LABS: MEAN CORPUSCULAR HEMOGLOBIN 34.8 pg (27.5-34.5); MEAN CORPUSCULAR HGB CONC 32.8 g/dL (33.2-36.2); MEAN CORPUSCULAR VOLUME 106.1 fL (81-97); MEAN PLATELET VOLUME 8.7 fL (7.4-10.4); PLATELET COUNT 115 x10^3/uL (130-400); RED BLOOD COUNT 2.85 x10^6/uL (4.38-5.82); RED CELL DISTRIBUTION WIDTH 19.8 % (9.4-14.8)
[2019-01-06] MEDS: D5%-0.9% NACL 1,000 ML IV SCH ×2 (05:12→22:34)
[2019-01-06 05:17] LABS: ANION GAP 4 mmol/L (5-15); CALCIUM 7.2 mg/dL (8.5-10.1); CHLORIDE 105 mmol/L (98-107); CREATININE 0.49 mg/dL (0.7-1.3)
[2019-01-06 06:19] LABS: BASOPHILS # (AUTO) 0.04 x10^3/uL (0-0.1); BASOPHILS % (AUTO) 0 % (0-1); EOSINOPHILS # (AUTO) 1.08 x10^3/uL (0-0.4); EOSINOPHILS % (AUTO) 9 % (1-7); LYMPHOCYTES # (AUTO) 1.71 x10^3/uL (1-3.4); LYMPHOCYTES % (AUTO) 14 % (22-44); MD SCAN; MONOCYTES # (AUTO) 1.76 x10^3/uL (0.2-0.8); MONOCYTES % (AUTO) 15 % (2-9); NEUTROPHILS # (AUTO) 7.58 x10^3/uL (1.8-6.8); NEUTROPHILS % (AUTO) 62 % (42-75)
[2019-01-06] MEDS: CHLORDIAZEPOXIDE 25 MG CAPSULE PO SCH ×3 (08:42→22:34)
[2019-01-06] MEDS ORDERED: VANCOMYCIN 1,200 MG in SODIUM CHLORIDE 0.9% 250 ML IV SCH (09:00)
[2019-01-06] MEDS: CEFTRIAXONE PMX 2GM/50ML 50 ML IV SCH (09:40)
[2019-01-06] MEDS: VANCOMYCIN 1,200 MG in SODIUM CHLORIDE 0.9% 250 ML IV SCH ×2 (10:36→22:34)
[2019-01-06 14:30] VITALS: BP 127/83
[2019-01-06 21:59] VITALS: BP 158/68
[2019-01-06] MEDS: ENOXAPARIN 40 MG/0.4 ML SQ SCH (22:34)
[2019-01-07] MEDS: POTASSIUM CHLORIDE 20 MEQ, MAGNESIUM SULFATE 2 GM, THIAMINE 200 MG, MVI ADULT 10 ML, FO... IV SCH (01:40)
[2019-01-07 03:59] VITALS: BP 131/70
[2019-01-07 05:30] LABS: MEAN CORPUSCULAR HEMOGLOBIN 34.3 pg (27.5-34.5); MEAN CORPUSCULAR HGB CONC 32.4 g/dL (33.2-36.2); MEAN PLATELET VOLUME 8.4 fL (7.4-10.4); PLATELET COUNT 113 x10^3/uL (130-400); RED BLOOD COUNT 2.89 x10^6/uL (4.38-5.82); RED CELL DISTRIBUTION WIDTH 18.8 % (9.4-14.8)
[2019-01-07 05:42] LABS: ANION GAP 4 mmol/L (5-15); CALCIUM 7.5 mg/dL (8.5-10.1); CHLORIDE 105 mmol/L (98-107)
[2019-01-07 05:43] LABS: CREATININE 0.46 mg/dL (0.7-1.3)
[2019-01-07 05:58] LABS: MD YES
[2019-01-07 06:00] LABS: <PLATELET ESTIMATE> ADEQUATE; <PLT MORPHOLOGY> NORMAL PLT MORPH; ANISOCYTOSIS 1+; EOS#(MANUAL) 1.15 x10^3/uL (0.0-0.4); EOS% (MANUAL) 9 % (1-7); LYMPH#(MANUAL) 2.56 x10^3/uL (1-3.4); LYMPHS% (MANUAL) 20 % (22-44); MONOS#(MANUAL) 1.92 x10^3/uL (0.3-2.7); MONOS% (MANUAL) 15 % (2-9); SEG#(MANUAL) 7.17 x10^3/uL (1.8-6.8); SEGS% (MANUAL) 56 % (42-75)
[2019-01-07 08:55] VITALS: BP 113/67
[2019-01-07] MEDS: CHLORDIAZEPOXIDE 25 MG CAPSULE PO SCH (09:00)
[2019-01-07] MEDS: CEFTRIAXONE PMX 2GM/50ML 50 ML IV SCH (09:00)
[2019-01-07] MEDS: VANCOMYCIN 1,200 MG in SODIUM CHLORIDE 0.9% 250 ML IV SCH (10:59)
[2019-01-07 16:52] VITALS: BP 105/64
[2019-01-07] MEDS: CARVEDILOL 3.125 MG TABLET PO SCH (17:45)
[2019-01-07 20:30] VITALS: BP 108/60
[2019-01-07] MEDS: ENOXAPARIN 40 MG/0.4 ML SQ SCH (21:53)
[2019-01-07] MEDS: VANCOMYCIN 1,400 MG in SODIUM CHLORIDE 0.9% 250 ML IV SCH (21:53)
[2019-01-08 05:53] VITALS: BP 118/64
[2019-01-08 06:56] LABS: BASOPHILS # (AUTO) 0.07 x10^3/uL (0-0.1); BASOPHILS % (AUTO) 1 % (0-1); EOSINOPHILS # (AUTO) 1.14 x10^3/uL (0-0.4); EOSINOPHILS % (AUTO) 11 % (1-7); LYMPHOCYTES # (AUTO) 1.56 x10^3/uL (1-3.4); LYMPHOCYTES % (AUTO) 15 % (22-44); MD NO; MEAN CORPUSCULAR HEMOGLOBIN 34.4 pg (27.5-34.5); MEAN CORPUSCULAR HGB CONC 32.6 g/dL (33.2-36.2); MEAN CORPUSCULAR VOLUME 105.6 fL (81-97); MEAN PLATELET VOLUME 8.4 fL (7.4-10.4); MONOCYTES # (AUTO) 1.32 x10^3/uL (0.2-0.8); MONOCYTES % (AUTO) 13 % (2-9); NEUTROPHILS # (AUTO) 6.28 x10^3/uL (1.8-6.8); NEUTROPHILS % (AUTO) 61 % (42-75); PLATELET COUNT 116 x10^3/uL (130-400); RED BLOOD COUNT 2.93 x10^6/uL (4.38-5.82); RED CELL DISTRIBUTION WIDTH 19.1 % (9.4-14.8)
[2019-01-08 07:05] LABS: ALANINE AMINOTRANSFERASE 50 U/L (12-78); ALBUMIN 1.8 g/dL (3.4-5.0); ANION GAP 4 mmol/L (5-15); CALCIUM 7.7 mg/dL (8.5-10.1); CHLORIDE 103 mmol/L (98-107)
[2019-01-08 07:08] LABS: ALKALINE PHOSPHATASE 175 U/L (45-117); BILIRUBIN,TOTAL 0.4 mg/dL (0.2-1.0); TOTAL PROTEIN 5.9 g/dL (6.4-8.2)
[2019-01-08 07:30] VITALS: BP 123/67
[2019-01-08] MEDS: CARVEDILOL 3.125 MG TABLET PO SCH ×2 (07:31→18:01)
[2019-01-08] MEDS: FUROSEMIDE 20 MG TABLET PO SCH (08:44)
[2019-01-08] MEDS: VANCOMYCIN 1,400 MG in SODIUM CHLORIDE 0.9% 250 ML IV SCH ×2 (08:44→22:10)
[2019-01-08] MEDS ORDERED: PERMETHRIN CRM 5%, 60GM TP ONE (09:00)
[2019-01-08] MEDS: CEFTRIAXONE PMX 2GM/50ML 50 ML IV SCH (10:30)
[2019-01-08] MEDS: POTASSIUM CHLORIDE 20 MEQ, MAGNESIUM SULFATE 2 GM, THIAMINE 200 MG, MVI ADULT 10 ML, FO... IV SCH (11:21)
[2019-01-08 15:49] VITALS: BP 104/61
[2019-01-08 20:10] VITALS: BP 118/62
[2019-01-08] MEDS: ENOXAPARIN 40 MG/0.4 ML SQ SCH (22:10)
[2019-01-09 04:00] VITALS: BP 115/63
[2019-01-09] MEDS: CARVEDILOL 3.125 MG TABLET PO SCH ×2 (06:39→18:48)
[2019-01-09] MEDS ORDERED: VANCOMYCIN PER PHARMACY MC PRN (07:30)
[2019-01-09 09:03] VITALS: BP 99/62
[2019-01-09] MEDS: FUROSEMIDE 20 MG TABLET PO SCH (10:09)
[2019-01-09] MEDS: CEFTRIAXONE PMX 2GM/50ML 50 ML IV SCH (10:10)
[2019-01-09] MEDS: VANCOMYCIN 1,400 MG in SODIUM CHLORIDE 0.9% 250 ML IV SCH (12:02)
[2019-01-09 15:04] VITALS: BP 107/64
[2019-01-09] MEDS: POTASSIUM CHLORIDE 20 MEQ, MAGNESIUM SULFATE 2 GM, THIAMINE 200 MG, MVI ADULT 10 ML, FO... IV SCH (18:46)
[2019-01-09 21:30] VITALS: BP 109/61
[2019-01-09] MEDS: SULFAMETH./TRIMETHOPRIM DS 800MG/160MG TABLET PO SCH (22:43)
[2019-01-09] MEDS: ENOXAPARIN 40 MG/0.4 ML SQ SCH (22:43)
[2019-01-10 02:48] VITALS: BP 107/52
[2019-01-10] MEDS: CARVEDILOL 3.125 MG TABLET PO SCH ×2 (05:23→18:44)
[2019-01-10 06:53] VITALS: BP 110/62
[2019-01-10] MEDS: ACETAMINOPHEN 325 MG TABLET PO PRN ×3 (07:45→20:25)
[2019-01-10] MEDS: SULFAMETH./TRIMETHOPRIM DS 800MG/160MG TABLET PO SCH (07:46)
[2019-01-10] MEDS: FUROSEMIDE 20 MG TABLET PO SCH (07:46)
[2019-01-10 09:41] LABS: BASOPHILS # (AUTO) 0.04 x10^3/uL (0-0.1); BASOPHILS % (AUTO) 0 % (0-1); EOSINOPHILS # (AUTO) 0.92 x10^3/uL (0-0.4); EOSINOPHILS % (AUTO) 9 % (1-7); LYMPHOCYTES % (AUTO) 12 % (22-44); MD SCAN; MEAN CORPUSCULAR HEMOGLOBIN 33.8 pg (27.5-34.5); MEAN CORPUSCULAR VOLUME 105.5 fL (81-97); MEAN PLATELET VOLUME 8.9 fL (7.4-10.4); MONOCYTES # (AUTO) 1.48 x10^3/uL (0.2-0.8); MONOCYTES % (AUTO) 15 % (2-9); NEUTROPHILS # (AUTO) 6.37 x10^3/uL (1.8-6.8); NEUTROPHILS % (AUTO) 64 % (42-75); PLATELET COUNT 114 x10^3/uL (130-400); RED BLOOD COUNT 2.98 x10^6/uL (4.38-5.82)
[2019-01-10 09:42] LABS: RED CELL DISTRIBUTION WIDTH 19.3 % (9.4-14.8)
[2019-01-10 13:25] VITALS: BP 150/80
[2019-01-10] MEDS: AMPICILLIN/SULBACTAM 3 GM in SODIUM CHLORIDE 0.9% 100 ML IV SCH ×2 (15:18→23:40)
[2019-01-10] MEDS ORDERED: VANCOMYCIN PER PHARMACY MC PRN (15:30)
[2019-01-10] MEDS ORDERED: SODIUM CHLORIDE 0.9%, 500ML IVBOLUS ONE (15:30)
[2019-01-10] MEDS ORDERED: PHARMACOKINETIC MONITORING MC PRN (16:00)
[2019-01-10] MEDS ORDERED: VANCOMYCIN 1,400 MG in SODIUM CHLORIDE 0.9% 250 ML IV SCH (16:00)
[2019-01-10] MEDS ORDERED: PHARMACOKINETIC CONSULTATION MC ONE (16:00)
[2019-01-10 19:44] VITALS: BP 106/55
[2019-01-10] MEDS: ENOXAPARIN 40 MG/0.4 ML SQ SCH (20:25)
[2019-01-10] MEDS: POTASSIUM CHLORIDE 20 MEQ, MAGNESIUM SULFATE 2 GM, THIAMINE 200 MG, MVI ADULT 10 ML, FO... IV SCH (21:29)
[2019-01-11 02:14] VITALS: BP 92/61
[2019-01-11 07:03] LABS: CREATININE 0.66 mg/dL (0.7-1.3)
[2019-01-11 07:21] LABS: MICROSCOPIC INDICATED
[2019-01-11 07:22] LABS: CULTURE INDICATED? YES
[2019-01-11] MEDS: AMPICILLIN/SULBACTAM 3 GM in SODIUM CHLORIDE 0.9% 100 ML IV SCH ×3 (07:24→20:54)
[2019-01-11 07:43] VITALS: BP 123/67
[2019-01-11] MEDS: CARVEDILOL 3.125 MG TABLET PO SCH ×2 (09:06→18:31)
[2019-01-11 12:18] VITALS: BP 108/61
[2019-01-11 18:26] VITALS: BP 114/69
[2019-01-11] MEDS: ENOXAPARIN 40 MG/0.4 ML SQ SCH (20:53)
[2019-01-11] MEDS: POTASSIUM CHLORIDE 20 MEQ, MAGNESIUM SULFATE 2 GM, THIAMINE 200 MG, MVI ADULT 10 ML, FO... IV SCH (21:41)
[2019-01-12 01:57] VITALS: BP 111/71
[2019-01-12] MEDS: AMPICILLIN/SULBACTAM 3 GM in SODIUM CHLORIDE 0.9% 100 ML IV SCH ×4 (02:56→21:15)
[2019-01-12 05:33] LABS: ALANINE AMINOTRANSFERASE 66 U/L (12-78); ALBUMIN 1.9 g/dL (3.4-5.0); ANION GAP 3 mmol/L (5-15); CALCIUM 7.6 mg/dL (8.5-10.1); CHLORIDE 104 mmol/L (98-107); CREATININE 0.56 mg/dL (0.7-1.3)
[2019-01-12 05:35] LABS: ALKALINE PHOSPHATASE 249 U/L (45-117); BILIRUBIN,TOTAL 0.5 mg/dL (0.2-1.0); TOTAL PROTEIN 6.6 g/dL (6.4-8.2)
[2019-01-12 05:56] LABS: MEAN CORPUSCULAR HEMOGLOBIN 33.4 pg (27.5-34.5); MEAN CORPUSCULAR HGB CONC 31.9 g/dL (33.2-36.2); MEAN CORPUSCULAR VOLUME 104.9 fL (81-97); MEAN PLATELET VOLUME 9.8 fL (7.4-10.4); PLATELET COUNT 128 x10^3/uL (130-400); RED BLOOD COUNT 3.01 x10^6/uL (4.38-5.82); RED CELL DISTRIBUTION WIDTH 19.2 % (9.4-14.8)
[2019-01-12 06:18] LABS: MD YES
[2019-01-12 06:19] LABS: EOS#(MANUAL) 1.13 x10^3/uL (0.0-0.4); EOS% (MANUAL) 11 % (1-7)
[2019-01-12 06:20] LABS: LYMPH#(MANUAL) 1.75 x10^3/uL (1-3.4); LYMPHS% (MANUAL) 17 % (22-44); MONOS#(MANUAL) 1.75 x10^3/uL (0.3-2.7); MONOS% (MANUAL) 17 % (2-9); SEG#(MANUAL) 5.67 x10^3/uL (1.8-6.8); SEGS% (MANUAL) 55 % (42-75)
[2019-01-12 06:21] LABS: ANISOCYTOSIS 1+
[2019-01-12 06:22] LABS: <PLATELET ESTIMATE> ADEQUATE; <PLT MORPHOLOGY> NORMAL PLT MORPH
[2019-01-12] MEDS: CARVEDILOL 3.125 MG TABLET PO SCH ×2 (06:33→17:30)
[2019-01-12 07:56] VITALS: BP 120/73
[2019-01-12 14:20] VITALS: BP 120/66
[2019-01-12 19:50] VITALS: BP 108/70
[2019-01-12] MEDS: ENOXAPARIN 40 MG/0.4 ML SQ SCH (21:15)
[2019-01-12] MEDS: POTASSIUM CHLORIDE 20 MEQ, MAGNESIUM SULFATE 2 GM, THIAMINE 200 MG, MVI ADULT 10 ML, FO... IV SCH (22:53)
[2019-01-13] MEDS: AMPICILLIN/SULBACTAM 3 GM in SODIUM CHLORIDE 0.9% 100 ML IV SCH ×4 (02:54→22:25)
[2019-01-13 03:26] VITALS: BP 109/71
[2019-01-13] MEDS: CARVEDILOL 3.125 MG TABLET PO SCH ×2 (05:14→17:44)
[2019-01-13 06:54] VITALS: BP 106/71
[2019-01-13 13:54] VITALS: BP 115/65
[2019-01-13 19:47] VITALS: BP 116/74
[2019-01-13] MEDS: ENOXAPARIN 40 MG/0.4 ML SQ SCH (21:03)
[2019-01-13] MEDS: POTASSIUM CHLORIDE 20 MEQ, MAGNESIUM SULFATE 2 GM, THIAMINE 200 MG, MVI ADULT 10 ML, FO... IV SCH (23:39)
[2019-01-14 02:11] VITALS: BP 112/73
[2019-01-14] MEDS: CARVEDILOL 3.125 MG TABLET PO SCH ×2 (05:30→17:34)
[2019-01-14] MEDS: AMPICILLIN/SULBACTAM 3 GM in SODIUM CHLORIDE 0.9% 100 ML IV SCH ×4 (05:30→23:23)
[2019-01-14 05:44] LABS: HCT (SEDRATE) 31.7 % (39.2-51.8)
[2019-01-14 05:49] LABS: CHLORIDE 106 mmol/L (98-107)
[2019-01-14 06:03] LABS: ALANINE AMINOTRANSFERASE 75 U/L (12-78); ALBUMIN 2.1 g/dL (3.4-5.0); ALKALINE PHOSPHATASE 287 U/L (45-117); ANION GAP 3 mmol/L (5-15); BILIRUBIN,TOTAL 0.7 mg/dL (0.2-1.0); C-REACTIVE PROTEIN, QUANT 0.77 mg/dL (0.02-0.49); CREATININE 0.49 mg/dL (0.7-1.3); TOTAL PROTEIN 6.9 g/dL (6.4-8.2)
[2019-01-14 06:31] LABS: BASOPHILS # (AUTO) 0.05 x10^3/uL (0-0.1); BASOPHILS % (AUTO) 1 % (0-1); EOSINOPHILS # (AUTO) 1.14 x10^3/uL (0-0.4); EOSINOPHILS % (AUTO) 12 % (1-7); LYMPHOCYTES # (AUTO) 2.24 x10^3/uL (1-3.4); LYMPHOCYTES % (AUTO) 23 % (22-44); MD SCAN; MEAN CORPUSCULAR HEMOGLOBIN 33.3 pg (27.5-34.5); MEAN CORPUSCULAR HGB CONC 31.6 g/dL (33.2-36.2); MEAN CORPUSCULAR VOLUME 105.2 fL (81-97); MEAN PLATELET VOLUME 9.5 fL (7.4-10.4); MONOCYTES # (AUTO) 1.49 x10^3/uL (0.2-0.8); MONOCYTES % (AUTO) 15 % (2-9); NEUTROPHILS # (AUTO) 4.99 x10^3/uL (1.8-6.8); NEUTROPHILS % (AUTO) 50 % (42-75); PLATELET COUNT 141 x10^3/uL (130-400); RED CELL DISTRIBUTION WIDTH 18.5 % (9.4-14.8)
[2019-01-14 07:01] VITALS: BP 99/57
[2019-01-14 14:04] VITALS: BP 101/59
[2019-01-14 19:59] VITALS: BP 124/71
[2019-01-14] MEDS: ENOXAPARIN 40 MG/0.4 ML SQ SCH (20:11)
[2019-01-15] MEDS: POTASSIUM CHLORIDE 20 MEQ, MAGNESIUM SULFATE 2 GM, THIAMINE 200 MG, MVI ADULT 10 ML, FO... IV SCH (00:09)
[2019-01-15 02:08] VITALS: BP 132/64
[2019-01-15] MEDS: AMPICILLIN/SULBACTAM 3 GM in SODIUM CHLORIDE 0.9% 100 ML IV SCH ×3 (05:54→16:58)
[2019-01-15] MEDS: CARVEDILOL 3.125 MG TABLET PO SCH ×2 (05:55→16:58)
[2019-01-15 07:09] VITALS: BP 122/76
[2019-01-15 13:08] VITALS: BP 116/69
[2019-01-15] MEDS ORDERED: ENOX40SY4 SQ (14:01)
[2019-01-15] MEDS ORDERED: CARV3.1212 PO (14:01)
[2019-01-15] MEDS ORDERED: ACET325T14 PO (14:01)
[2019-01-15] MEDS ORDERED: POLY17PO5 PO (14:01)
[2019-01-15] MEDS ORDERED: AMPI3VIA IV (14:01)
== END 2019-01-15 18:04 | DRG 853 ==
LOC: EDBD 17:41 → MERGE 17:41 → ED 19:20 → EDIP 19:25 → SUATTDRO 19:44 → ED 19:48 → 4NOR 22:12 → CCU 01-02 20:16 → 4NOR 01-03 09:11
PROVIDERS: ADMIT Hospitalist; ATTEND Hospitalist
PROC: 0Y6S0Z1 Detachment at Left 2nd Toe, High, Open Approach (ICD-10-PCS; 2019-01-05)
PROC: 0Y6Q0Z1 Detachment at Left 1st Toe, High, Open Approach (ICD-10-PCS; principal; 2019-01-05 16:00)
PROC: 02HV33Z Insertion of Infusion Device into Superior Vena Cava, Percutaneous Approach (ICD-10-PCS; 2019-01-14)
PROC: B548ZZA Ultrasonography of Superior Vena Cava, Guidance (ICD-10-PCS; 2019-01-14)
PROC: B5181ZA Fluoroscopy of Superior Vena Cava using Low Osmolar Contrast, Guidance (ICD-10-PCS; 2019-01-14)
DX: A41.9 Sepsis, unspecified organism (principal); E43 Unspecified severe protein-calorie malnutrition; E87.1 Hypo-osmolality and hyponatremia; I50.32 Chronic diastolic (congestive) heart failure; M86.172 Other acute osteomyelitis, left ankle and foot; L03.115 Cellulitis of right lower limb; L03.116 Cellulitis of left lower limb; B18.2 Chronic viral hepatitis C; B86 Scabies; D53.9 Nutritional anemia, unspecified; D69.59 Other secondary thrombocytopenia; E87.6 Hypokalemia; F10.20 Alcohol dependence, uncomplicated; F17.210 Nicotine dependence, cigarettes, uncomplicated; F20.9 Schizophrenia, unspecified; G40.909 Epilepsy, unspecified, not intractable, without status epilepticus; K70.9 Alcoholic liver disease, unspecified; L97.529 Non-pressure chronic ulcer of other part of left foot with unspecified severity; R09.02 Hypoxemia; Z59.0 Homelessness; Z68.24 Body mass index [BMI] 24.0-24.9, adult; Z87.01 Personal history of pneumonia (recurrent); Z91.19 Patient's noncompliance with other medical treatment and regimen
CPT/HCPCS: 36415; 36573; 36600; 71045; 80048; 80053; 80202; 81001; 82565; 82803; 83036; 83605; 83735; 83880; 84100; 84145; 84443; 84520; 85025; 85610; 85651; 85730; 86140; 86480; 86704; 86706; 86708; 86803; 87040; 87070; 87075; 87077; 87081; 87086; 87147; 87186; 87205; 87340; 87806; 88302; 88311; 93005; 93306; 94640; 96365; 96375; A9585; G0378; J0295; J0690; J0696; J1650; J1940; J2250; J2405; J2704; J3010; J3370; J3411; J3475; J3480; J3490; J7042; J7620; 92523-GN; C1751; G0475; J0330; J2060; J2370; J2930; J7030; J7040; J7050

== ENCOUNTER 2019-02-19 22:42 | Emergency (ER) | payer MEDICARE, MEDICAID ==
[~2019-02-19] VITALS: Ht 172.7 cm; Wt 75.0 kg
[~2019-02-19 22:42] MED LIST changes: +AMPI3VIA IV; +CARV3.1212 PO; +ENOX40SY4 SQ; +POLY17PO5 PO
--- NOTE | 2019-02-19 22:52 | NUR ---
IB ZAINAB STATED PT WAS ON GROUND OUTSIDE PARKING GARAGE ON [facility], FOUND INTOXICATED BY SECURITY KIMBERLY STATED PT WAS LAYING LEFT LATERAL SIDE AND STATED HE CAN NOT WALK, PT STATED "ALOT TO DRINK", B/P-124/56, HR-90, 94% R/A, FSBS-189, MONITORS APPLIED, SIDERAILS UP X2, CALL LIGHT WITHIN REACH
--- NOTE | 2019-02-19 23:37 | NUR ---
PT RESTING CALMLY, MONITORS IN PLACE, SIDERAILS UP X2, CALL LIGHT WITHIN REACH
[2019-02-19 23:59] LABS: BASOPHILS # (AUTO) 0.04 x10^3/uL (0-0.1); BASOPHILS % (AUTO) 0 % (0-1); EOSINOPHILS # (AUTO) 0.51 x10^3/uL (0-0.4); EOSINOPHILS % (AUTO) 5 % (1-7); LYMPHOCYTES # (AUTO) 3.73 x10^3/uL (1-3.4); LYMPHOCYTES % (AUTO) 39 % (22-44); MD NO; MEAN CORPUSCULAR HEMOGLOBIN 34.1 pg (27.5-34.5); MEAN CORPUSCULAR HGB CONC 33.6 g/dL (33.2-36.2); MEAN CORPUSCULAR VOLUME 101.5 fL (81-97); MEAN PLATELET VOLUME 8.5 fL (7.4-10.4); MONOCYTES # (AUTO) 0.78 x10^3/uL (0.2-0.8); MONOCYTES % (AUTO) 8 % (2-9); NEUTROPHILS # (AUTO) 4.62 x10^3/uL (1.8-6.8); NEUTROPHILS % (AUTO) 48 % (42-75); PLATELET COUNT 159 x10^3/uL (130-400); RED BLOOD COUNT 3.66 x10^6/uL (4.38-5.82); RED CELL DISTRIBUTION WIDTH 17.4 % (9.4-14.8)
[2019-02-20 00:11] LABS: ALBUMIN 3.2 g/dL (3.4-5.0); ANION GAP 7 mmol/L (5-15); CALCIUM 8.7 mg/dL (8.5-10.1); CHLORIDE 103 mmol/L (98-107)
[2019-02-20 00:16] LABS: ALANINE AMINOTRANSFERASE 208 U/L (12-78); ALKALINE PHOSPHATASE 158 U/L (45-117); BILIRUBIN,TOTAL 0.5 mg/dL (0.2-1.0); CREATININE 0.86 mg/dL (0.7-1.3); TOTAL PROTEIN 8.2 g/dL (6.4-8.2)
--- NOTE | 2019-02-20 00:37 | NUR ---
PT RESTING CALMLY, OPENS EYES EASILY TO VEBAL RESPONSE, ALERT TO SELF ONLY, MONITORS IN PLACE, CALL LIGHT WITHIN REACH.
--- NOTE | 2019-02-20 01:26 | NUR ---
PT RESTING WITH EYES CLOSED, NAD, EQUAL CHEST RISE/FALL OBSERVED, MONITORS IN PLACE, CALL LIGHT WITHIN REACH
--- NOTE | 2019-02-20 02:45 | NUR ---
PT RESTING WITH EYES CLOSED, NAD, EQUAL CHEST RISE/FALL OBSERVED, MONITORS IN PLACE, CALL LIGHT WITHIN REACH
[2019-02-20 03:35] VITALS: BP 104/59
--- NOTE | 2019-02-20 03:36 | NUR ---
PT RESTING WITH EYES CLOSED, OPENS EYES TO VERBAL RESPONSE AND QUICKLY FALLS BACK TO SLEEP, EQUAL CHEST RISE/FALL OBSERVED, MONITORS IN PLACE, CALL LIGHT WITHIN REACH.
--- NOTE | 2019-02-20 04:00 | NUR ---
PT A&O, ANSWERING ALL QUESTIONS APPROPRIATELY, ABLE TO AMBULATE WITHOUT DIFICULTY
== END 2019-02-20 04:18 | disposition home or self-care (01) ==
LOC: ED 23:09
DX: F10.229 Alcohol dependence with intoxication, unspecified (principal); I10 Essential (primary) hypertension; F20.9 Schizophrenia, unspecified
CPT/HCPCS: 36415; 80053; 80307; 85025; 99283

== ENCOUNTER 2019-02-21 10:50 | Emergency (ER) | payer MEDICARE, MEDICAID ==
[~2019-02-21] VITALS: Ht 160 cm; Wt 72.7 kg
--- NOTE | 2019-02-21 11:00 | NUR ---
BIB EMS, [place] ISABEL NICOLE. EMS ARRIVED PT ARROUSED TO VERBAL STIM. SBP IN 80'S, EMS EST PIV AND ADMIN 1LITER NS WITH EFFECT. PT PRESENTS TO ED ORIENTED TO PERSON, FOLLOWS COMMANDS, ADMITS TO ALCOHOL AND SMOKING METH. DENIES PAIN. +ETOH ODOR NOTED. PT ON MONIOR VSS. RA SATS 89-92%. 02 2L PACED.
[2019-02-21] MEDS ORDERED: THIAMINE 100MG TABLET PO ONE (11:30)
[2019-02-21] MEDS ORDERED: THIAMINE 100MG TABLET ONE (11:39)
[2019-02-21 11:49] LABS: ALBUMIN 2.8 g/dL (3.4-5.0); ANION GAP 14 mmol/L (5-15); CALCIUM 8.5 mg/dL (8.5-10.1); CHLORIDE 99 mmol/L (98-107)
[2019-02-21 11:53] LABS: BASOPHILS # (AUTO) 0.02 x10^3/uL (0-0.1); BASOPHILS % (AUTO) 0 % (0-1); EOSINOPHILS # (AUTO) 0.12 x10^3/uL (0-0.4); EOSINOPHILS % (AUTO) 1 % (1-7); LYMPHOCYTES # (AUTO) 3.65 x10^3/uL (1-3.4); LYMPHOCYTES % (AUTO) 37 % (22-44); MD NO; MEAN CORPUSCULAR HEMOGLOBIN 33.3 pg (27.5-34.5); MEAN CORPUSCULAR HGB CONC 32.9 g/dL (33.2-36.2); MEAN CORPUSCULAR VOLUME 101.3 fL (81-97); MEAN PLATELET VOLUME 8.4 fL (7.4-10.4); MONOCYTES # (AUTO) 0.97 x10^3/uL (0.2-0.8); MONOCYTES % (AUTO) 10 % (2-9); NEUTROPHILS # (AUTO) 5.03 x10^3/uL (1.8-6.8); NEUTROPHILS % (AUTO) 51 % (42-75); PLATELET COUNT 129 x10^3/uL (130-400); RED BLOOD COUNT 3.14 x10^6/uL (4.38-5.82)
[2019-02-21 12:10] LABS: ALANINE AMINOTRANSFERASE 145 U/L (12-78); ALKALINE PHOSPHATASE 131 U/L (45-117); BILIRUBIN,TOTAL 1.1 mg/dL (0.2-1.0); CREATININE 0.87 mg/dL (0.7-1.3); TOTAL PROTEIN 7.4 g/dL (6.4-8.2)
--- NOTE | 2019-02-21 13:31 | NUR ---
PT SLEEPS UNLESS ARROUSED. RESP EVEN NON-LABORED. ARROUSES TO VERBAL STIM. LUNCH TRAY ORDERED.
--- NOTE | 2019-02-21 16:23 | NUR ---
PT SLEEPING, ARROUSES EASILY TO VERBAL STIMULATION. HOB UP 90 DEGREES, AND PT GIVEN MEAL TRAY. PT SITTING UP EATING W/O DIFFICULTY
--- NOTE | 2019-02-21 16:49 | NUR ---
PT. IS SITTING UP ON THE STRETCHER EATING LUNCH WITHOUT CONCERNS.
--- NOTE | 2019-02-21 17:30 | NUR ---
PT ATE 100% OF HIS MEAL.
--- NOTE | 2019-02-21 18:00 | NUR ---
PT OOB AMBULATED UPRIGHT STEADY GAIT. RTD TO ROOM. LYING ON GURNEY, AWAITING D/C INSTRUCTIONS
[2019-02-21 18:54] VITALS: BP 118/76
--- NOTE | 2019-02-21 18:55 | NUR ---
Patient/Caregiver given discharge instructions and they have confirmed that they understand the instructions. Patient ambulatory with steady gait.
== END 2019-02-21 18:58 | disposition home or self-care (01) ==
LOC: ED 18:52
DX: F10.120 Alcohol abuse with intoxication, uncomplicated (principal); F15.10 Other stimulant abuse, uncomplicated
CPT/HCPCS: 36415; 80053; 80307; 85025; 99283

== ENCOUNTER 2019-02-21 22:49 | Emergency (ER) | payer MEDICARE, MEDICAID ==
[~2019-02-21] VITALS: Ht 165.1 cm; Wt 54.0 kg
--- NOTE | 2019-02-22 | NUR ---
PT AWAKENED, AMBULATE WITH UNSTEADY GAIT AND ASSISTANCE, TAKING PO FLUIDS AND IS CURRENTLY WITHOUT COMPLAINT.
--- NOTE | 2019-02-22 02:08 | NUR ---
SLEEPING QUIETLY, RESP RATE EVEN AND REG, AWAKEN VERBAL, AWAIT SOBRIETY FOR SAFE DISCHARGE. PT MONITORED VISUALLY FOR SAFETY
[2019-02-22 03:00] VITALS: BP 105/71
--- NOTE | 2019-02-22 03:01 | NUR ---
Awaken verbal, await a safe discharge.
--- NOTE | 2019-02-22 03:15 | NUR ---
Pt awake and alert and states that he wants to leave. Out of chair and ambulating with steady gait towards ambulance door, given cab voucher and asked to sit in chair at front entrance to await cab.
== END 2019-02-22 04:07 | disposition home or self-care (01) ==
LOC: ED 02-22 00:48
DX: F10.129 Alcohol abuse with intoxication, unspecified (principal); G40.909 Epilepsy, unspecified, not intractable, without status epilepticus; F20.9 Schizophrenia, unspecified; I10 Essential (primary) hypertension; Z72.9 Problem related to lifestyle, unspecified
CPT/HCPCS: 99283

== ENCOUNTER 2019-02-22 20:17 | Emergency (ER) | payer MEDICARE, MEDICAID ==
[~2019-02-22] VITALS: Ht 170.2 cm; Wt 70.0 kg
--- NOTE | 2019-02-22 20:35 | NUR ---
68 Y/O MALE BIB [facility] FOR ETOH. PT NON AMBULATORY. NO FALLS OR TRAUMA REPORTED. [facility] CALLED [facility] DUE TO PT NOT BEING AMBULATORY. PT IS ALERT AND ORIENTED. SEEN IN ER LAST NIGHT X2 FOR SAME COMPLAINT. PLACED ON GURNEY AND HOOKED UP TO MONITORING EQUIPMENT, ALL VITALS STABLE. WILL CONTINUE TO MONITOR
--- NOTE | 2019-02-22 21:58 | NUR ---
PT SLEEPING VITALS STABLE. AWAITING PT TO SOBER UP FOR SAFE DISCHARGE
--- NOTE | 2019-02-22 22:59 | NUR ---
PT CONTINUES TO SLEEP. VITALS STABLE. WILL CONTINUE TO MONITOR.
--- NOTE | 2019-02-22 23:57 | NUR ---
PT SLEEPING. VITALS STABLE. WILL CONTINUE TO MONITOR. AWAITING PT TO SOBER UP FOR SAFE DISCHARGE
--- NOTE | 2019-02-23 00:36 | NUR ---
ATTEMPTED TO AMBULATE PT. UNSTEADY GAIT NOTED. BACK TO BED WITHOUT DIFFICULTY. WILL REASSESS AGAIN LATER.
--- NOTE | 2019-02-23 01:58 | NUR ---
PT SLEEPING. VITALS STABLE. AWAITING PT TO SOBER UP FOR SAFE DISCHARGE
[2019-02-23 02:16] VITALS: BP 124/72
--- NOTE | 2019-02-23 03:46 | NUR ---
PT ABLE TO AMBULATE WITH A STEADY GAIT. CAB VOUCHER PROVIDED TO HALFWAY
== END 2019-02-23 04:06 | disposition home or self-care (01) ==
LOC: ED 20:29
DX: F10.220 Alcohol dependence with intoxication, uncomplicated (principal); I10 Essential (primary) hypertension; F20.9 Schizophrenia, unspecified; G40.909 Epilepsy, unspecified, not intractable, without status epilepticus; Z72.9 Problem related to lifestyle, unspecified
CPT/HCPCS: 99283

== ENCOUNTER 2019-02-28 07:13 | Emergency (ER) | payer MEDICARE, MEDICAID ==
[~2019-02-28] VITALS: Ht 167.6 cm; Wt 70.0 kg
--- NOTE | 2019-02-28 09:30 | NUR ---
remains sleeping vss continuing to monitor
--- NOTE | 2019-02-28 10:39 | NUR ---
REMAINS SLEEPING AROUSES TO LOUD VERBAL
--- NOTE | 2019-02-28 10:55 | NUR ---
BEDSIDE REPORT FROM MREON RN, PT SLEEPING IN [facility] ON MONITOR, EQUAL CHEST RISE AND FALL. VSS. UP FOR DC WHEN ABLE TO AMBULATE
[2019-02-28 10:58] VITALS: BP 122/67
--- NOTE | 2019-02-28 12:08 | NUR ---
PT PROVIDED LUNCH TRAY AND NEW PANTS
--- NOTE | 2019-02-28 12:53 | NUR ---
PT AMBULATED WITH STEADY GAIT, CHANGD CLOTHES. OK FOR DC
== END 2019-02-28 13:10 | disposition home or self-care (01) ==
LOC: ED 08:01
DX: F10.220 Alcohol dependence with intoxication, uncomplicated (principal); G40.909 Epilepsy, unspecified, not intractable, without status epilepticus; I10 Essential (primary) hypertension; F20.9 Schizophrenia, unspecified
CPT/HCPCS: 99283

== ENCOUNTER 2019-02-28 21:53 | Emergency (ER) | payer MEDICARE, MEDICAID ==
[~2019-02-28] VITALS: Ht 162.6 cm; Wt 65.0 kg
--- NOTE | 2019-02-28 22:07 | NUR ---
68 Y/O MALE BIB [facility] FOR ETOH. [facility] CALLED EMS BECAUSE THE PT WAS SLEEPING ON THE SIDEWALK. UNABLE TO AMBULATE. HEAVY ETOH TONIGHT. PT DENIES ANY COMPLAINTS, TRAUMA/FALLS. ALERT AND ORIENTED. MONITORING EQUIPMENT APPLIED. WILL CONTINUE TO MONITOR.
--- NOTE | 2019-02-28 23:07 | NUR ---
PT SLEEPING. VITALS STABLE. AWAITING PT TO SOBER UP FOR SAFE DISCHARGE
--- NOTE | 2019-03-01 00:44 | NUR ---
PT CONTINUES TO SLEEP. VITALS STABLE. AWAITING PT TO SOBER UP FOR SAFE DISCHARGE. WILL CONTINUE TO MONITOR.
--- NOTE | 2019-03-01 02:25 | NUR ---
PT CONTINUES TO SLEEP. VITALS STABLE. AWAITING PT TO SOBER UP FOR SAFE DISCHARGE.
--- NOTE | 2019-03-01 02:28 | NUR ---
REPORT TO LANCE CRISTINA.
[2019-03-01 05:53] VITALS: BP 116/66
--- NOTE | 2019-03-01 06:51 | NUR ---
Pt d/c with d/c summary and taxi voucher to [facility]. pt vss upon d/c and pt ambulates with steady gait for d/c. pt denies any other needs pertaining to this visit.
== END 2019-03-01 06:56 | disposition home or self-care (01) ==
LOC: ED 22:20
DX: F10.220 Alcohol dependence with intoxication, uncomplicated (principal); Z72.9 Problem related to lifestyle, unspecified; I10 Essential (primary) hypertension; G40.909 Epilepsy, unspecified, not intractable, without status epilepticus; F20.9 Schizophrenia, unspecified
CPT/HCPCS: 99283

== ENCOUNTER 2019-03-09 11:45 | Emergency (ER) | payer MEDICARE, MEDICAID ==
[~2019-03-09] VITALS: Ht 167.6 cm; Wt 73.0 kg
--- NOTE | 2019-03-09 11:59 | NUR ---
PATIENT BIB [facility] FOR ETOH. PATIENT SLURRING WORDS, A/A, "VODKA 1 PINT" PRIOR TO ARRIVAL PER PATIENT. C/O BLANC. NO TRAUMA NOTED. CONTINUOUS MONITORS IN PLACE. NAD NOTED. AWAITING MD ORDERS, CALL LIGHT WITHIN REACH.
[2019-03-09 16:47] VITALS: BP 100/55
--- NOTE | 2019-03-09 16:47 | NUR ---
Patient/Caregiver given discharge instructions and they have confirmed that they understand the instructions. Patient ambulatory with steady gait.
== END 2019-03-09 16:49 | disposition home or self-care (01) ==
LOC: ED 11:50
DX: F10.120 Alcohol abuse with intoxication, uncomplicated (principal); I10 Essential (primary) hypertension; F20.9 Schizophrenia, unspecified; G40.909 Epilepsy, unspecified, not intractable, without status epilepticus
CPT/HCPCS: 99283

== ENCOUNTER 2019-03-10 21:15 | Emergency (ER) | payer MEDICARE, MEDICAID ==
[~2019-03-10] VITALS: Ht 154.9 cm; Wt 70.0 kg
[2019-03-10 21:23] VITALS: BP 118/61
--- NOTE | 2019-03-10 21:27 | NUR ---
PT AMBULATED TO ROOM WITH [facility] PT STATED THAT HE HAD A SEIZURE, NOT POST ICTAL AT THIS TIME
== END 2019-03-10 21:52 | disposition home or self-care (01) ==
LOC: ED 21:40
DX: F10.220 Alcohol dependence with intoxication, uncomplicated (principal); G40.409 Other generalized epilepsy and epileptic syndromes, not intractable, without status epilepticus; Z72.9 Problem related to lifestyle, unspecified; R89.2 Abnormal level of other drugs, medicaments and biological substances in specimens from other organs, systems and tissues; F20.9 Schizophrenia, unspecified
CPT/HCPCS: 99283